=== PATIENT | male | born 1975 | race Caucasian/White ===

== ENCOUNTER 2017-05-14 16:19 | Emergency (ER) | payer OTHER ==
[~2017-05-14] VITALS: Ht 188 cm; Wt 81.6 kg
[2017-05-14 16:43] VITALS: BP 150/101
--- NOTE | 2017-05-14 17:10 | PHYS DOC ---
Past Medical History Past Medical History: No Pertinent History Past Surgical History: No Surgical History Alcohol Use: Occasionally Drug Use: None Adult General Chief Complaint Chief Complaint: SEXUALLY TRANSMITTED DISEASE HPI HPI Patient is a 42 year old male with no significant male medical history who presents today requesting to be tested for STDs he has dysuria and penile discharge for 4 days. Patient will not give much information but states if his results are positive he is going to get a divorce. Review of Systems Review of Systems Constitutional: Denies fever or chills [] Eyes: Denies change in visual acuity, redness, or eye pain [] GI: Denies abdominal pain, nausea, vomiting, bloody stools or diarrhea [] : Concern for STDs Musculoskeletal: Denies back pain or joint pain [] Integument: Denies rash or skin lesions [] Neurologic: Denies headache, focal weakness or sensory changes [] Endocrine: Denies polyuria or polydipsia [] Current Medications Current Medications Current Medications Medications (Trade) Dose Ordered Sig/Elva Start Time Stop Time Status Last Admin Dose Admin Azithromycin (Zithromax) 1,000 mg 1X ONCE 05/14/17 17:15 05/14/17 17:16 UNV Ceftriaxone Sodium (Rocephin Im) 250 mg 1X ONCE 05/14/17 17:15 05/14/17 17:16 UNV Metronidazole (Flagyl) 2,000 mg 1X ONCE 05/14/17 17:15 05/14/17 17:16 UNV Physical Exam Physical Exam Constitutional: Well developed, well nourished, no acute distress, non-toxic appearance. [] HENT: Normocephalic, atraumatic, bilateral external ears normal, oropharynx moist, no oral exudates, nose normal. [] Abdomen: Bowel sounds normal, soft, no tenderness, no masses, no pulsatile masses. [] Skin: Warm, dry, no erythema, no rash. [] Back: No tenderness, no CVA tenderness. [] Extremities: No tenderness, no cyanosis, no clubbing, ROM intact, no edema. [] Neurologic: Alert and oriented X 3, normal motor function, normal sensory function, no focal deficits noted. [] Psychologic: Affect normal, judgement normal, mood normal. [] Current Patient Data Vital Signs Vital Signs Date Time Temp Pulse Resp B/P (MAP) Pulse Ox O2 Delivery O2 Flow Rate FiO2 7/4/17 16:43 98.4 99 16 97 Room Air 98.4 EKG EKG [] Radiology/Procedures Radiology/Procedures [] Course & Med Decision Making Course & Med Decision Making Pertinent Labs and Imaging studies reviewed. (See chart for details) Patient is in the ED requesting to be tested for STDs, he would not give much information but states he has dysuria and penile discharged for four days. I offered patient treatment as well which he accepted. He states he will get a divorce his test is positive. Urine was sent to lab. Patient was given Flagyl, Rocephin and azithromycin and informed we will call him on the results are positive in the next 3-7 days. Dragon Disclaimer Dragon Disclaimer This electronic medical record was generated, in whole or in part, using a voice recognition dictation system. Departure Departure Impression: Primary Impression: Concern about STD in male without diagnosis Disposition: 01 HOME, SELF-CARE Condition: STABLE Referrals: NO PCP (PCP) Follow-up with the health department for further STD concerns Patient Instructions: Sexually Transmitted Disease, [id number] Additional Instructions: You were seen in the ED with STD concerns. You were treated prophylaxis (prior to results). It takes 3 days for the results to come back. Usually we call people who are positive in the next 3-7 days. If your results are negative we do not call you. Please do not have sex for 7 days. We recommend you use protection at all times, we recommend calling all your partners and let them know you were treated for STDs and ask them to seek treatment too. JACKIE RODRIGUEZ APRN May 14, 2017 17:10
[2017-05-14] MEDS ORDERED: AZITHROMYCIN 250 MG TABLET. PO ONE (17:15)
[2017-05-14] MEDS ORDERED: metroNIDAZOLE 500 MG TABLET PO ONE (17:15)
[2017-05-14] MEDS ORDERED: cefTRIAXone IM 250 MG VIAL IM ONE (17:15)
[2017-05-14 17:27] LABS: BILIRUBIN,URINE NEGATIVE (NEG); GLUCOSE,URINE NEGATIVE (NEG); NITRITE,URINE NEGATIVE (NEG); PH,URINE 6.5; PROTEIN,URINE 30 mg/dL (NEG-TRACE)
[2017-05-14 17:36] LABS: BACTERIA,URINE 0 /HPF (0-FEW); WBC,URINE >40 /HPF (0-4)
== END 2017-05-14 17:27 | disposition home or self-care (01) ==
LOC: ER 16:19
DX: Z20.2 Contact with and (suspected) exposure to infections with a predominantly sexual mode of transmission (principal); R30.0 Dysuria; R36.9 Urethral discharge, unspecified
CPT/HCPCS: 36415; 81001; 87491; 87591; 96372; 99284; J0696; Q0144

== ENCOUNTER 2017-08-28 10:31 | Emergency (ER) | payer SELFPAY ==
[~2017-08-28] VITALS: Ht 188 cm; Wt 84.8 kg
[2017-08-28 10:35] VITALS: BP 152/96
[2017-08-28] MEDS ORDERED: MECL25TA3 PO (10:42)
--- NOTE | 2017-08-28 10:48 | PHYS DOC ---
Past Medical History Past Medical History: No Pertinent History Past Surgical History: No Surgical History Alcohol Use: Occasionally Drug Use: None Adult General Chief Complaint Chief Complaint: DIZZY/LIGHT HEADED HPI HPI Patient is a 42 year old male who presents with episode of dizziness. He states he got up overnight to go to the restroom when he felt a little nauseous and moved his head and had an episode of vertigo. He went back to bed and woke up this morning feeling much better and no repeat events of the happened. He denies any blurry vision, headaches, focal weakness or ataxia. He's feeling much better today. In recent days he did have a little left ear pressure as well as sinus drainage that is since resolved. Denies any fevers. Patient admits to smoking but has been trying to cut back, no history of hypertension, doesn't follow with a primary care physician. Denies chest pain. Review of Systems Review of Systems Constitutional: Denies fever or chills [] Eyes: Denies change in visual acuity, redness, or eye pain [] HENT: Reports improving nasal congestion Respiratory: Denies cough or shortness of breath [] Cardiovascular: Denies chest pain GI: Denies abdominal pain, nausea, vomiting, bloody stools or diarrhea [] : Denies dysuria or hematuria [] Musculoskeletal: Denies back pain or joint pain [] Integument: Denies rash or skin lesions [] Neurologic: Denies headache, focal weakness or sensory changes [] Endocrine: Denies polyuria or polydipsia [] Allergies Allergies Allergies Coded Allergies Type Severity Reaction Last Updated Verified No Known Drug Allergies 05/14/17 No Physical Exam Physical Exam Constitutional: Well developed, well nourished HENT: Normocephalic, atraumatic, bilateral external ears normal, oropharynx moist Eyes: PERRLA, EOMI, conjunctiva normal, no discharge. Neck: Normal range of motion, supple, no stridor. Cardiovascular:Heart rate regular with regular rhythm Lungs & Thorax: Bilateral breath sounds clear to auscultation, no wheeze, crackles or rhonchi appreciated Abdomen: Nontender, nondistended Skin: Warm, dry Back: No tenderness Extremities: No tenderness, no cyanosis, no edema. [] Neurologic: Alert and oriented X 3, normal motor function, normal sensory function, no focal deficits noted. Cranial nerves II through XII intact, normal finger to nose bilaterally, normal gait EKG EKG [] Radiology/Procedures Radiology/Procedures [] Course & Med Decision Making Course & Med Decision Making Pertinent Labs and Imaging studies reviewed. (See chart for details) Patient symptoms yesterday but no symptoms today, feeling much better, he just walked approximately 2 miles to our facility without any symptoms. He admits he came here for work note as required by his job. Patient counseled on smoking cessation and the need to follow-up for his elevated blood pressure. Referral sheet given Ursula Disclaimer Ursula Disclaimer This electronic medical record was generated, in whole or in part, using a voice recognition dictation system. Departure Departure Impression: Primary Impression: Dizziness Disposition: 01 HOME, SELF-CARE Condition: GOOD Patient Instructions: Smoking Cessation, Tips For Success, Vertigo, Easy-to- Read, Hypertension, [id number], Form - Excuse from Work, School, or Physical Activity Scripts Meclizine Hcl (MECLIZINE HCL) 25 Mg Tablet 25 MG PO PRN TID Y for dizziness, #10 TAB dizziness Prov: BRITTANY NEIL MD 08/28/17 BRITTANY NEIL MD Aug 28, 2017 10:48
== END 2017-08-28 10:55 | disposition home or self-care (01) ==
LOC: ER 10:31
DX: R42 Dizziness and giddiness (principal); R11.0 Nausea
CPT/HCPCS: 99282

== ENCOUNTER 2017-11-10 13:54 | Emergency (ER) | payer SELFPAY, OTHER | END 2017-11-10 14:20 | disposition home or self-care (01) | LOC: ER 13:54 | DX: S05.12XA Contusion of eyeball and orbital tissues, left eye, initial encounter (principal); S05.11XA Contusion of eyeball and orbital tissues, right eye, initial encounter; Y04.0XXA Assault by unarmed brawl or fight, initial encounter; Y93.89 Activity, other specified; Y99.8 Other external cause status; Y92.89 Other specified places as the place of occurrence of the external cause | CPT/HCPCS: 99283 ==

== ENCOUNTER 2018-07-16 08:58 | Emergency (ER) | payer SELFPAY ==
[2017-11-10 14:00] VITALS: BP 161/98
[~2018-07-16 08:58] MED LIST: MECL25TA3 PO
== END 2018-07-16 10:05 | disposition left against medical advice (07) ==
LOC: ER 08:58
DX: M72.2 Plantar fascial fibromatosis (principal); Z53.21 Procedure and treatment not carried out due to patient leaving prior to being seen by health care provider

== ENCOUNTER 2020-10-14 13:10 | Emergency (ER) | payer SELFPAY ==
[2017-11-10 14:00] VITALS: BP 161/98
[~2020-10-14 13:10] MED LIST changes: +MECL-75 PO; -MECL25TA3 PO
== END 2020-10-14 14:26 | disposition left against medical advice (07) ==
LOC: ER 13:10
DX: R22.42 Localized swelling, mass and lump, left lower limb (principal); Z53.21 Procedure and treatment not carried out due to patient leaving prior to being seen by health care provider

== ENCOUNTER 2021-07-02 09:49 | Emergency (ER) | payer SELFPAY ==
[~2021-07-02] VITALS: Ht 188 cm; Wt 89.5 kg
[2021-07-02 10:09] VITALS: BP 162/110
[2021-07-02 10:23] LABS: BACTERIA,URINE 0 /HPF (0-FEW); BILIRUBIN,URINE NEGATIVE (NEG); CLARITY,URINE CLEAR; COLOR,URINE STRAW; NITRITE,URINE NEGATIVE (NEG); PROTEIN,URINE NEGATIVE (NEG-TRACE); RBC,URINE 0 /HPF (0-2); UROBILINOGEN,URINE 0.2 mg/dL (0.2 mg/dL); WBC,URINE 0 /HPF (0-4)
[2021-07-02] MEDS ORDERED: DOXY100C3 PO (11:02)
--- NOTE | 2021-07-02 11:02 | PHYS DOC ---
Past Medical History Past Medical History: No Pertinent History Past Surgical History: No Surgical History Smoking Status: Former Smoker Alcohol Use: None Drug Use: None General Adult EDM: Chief Complaint: SEXUALLY TRANSMITTED DISEASE HPI: HPI: 46-year-old male past medical history of former tobacco dependence, presents to the ED stating "my was just here and tested positive for chlamydia." Patient denies any associated genital rash, dysuria, hematuria, increased urinary frequency or urgency or urethral discharge. Has been treated for gonorrhea at the beginning of his marriage. Gives plasma approximately every 3 months, no history of HIV. Review of Systems: Review of Systems: Constitutional: Denies fever or chills. [] Eyes: Denies change in visual acuity. [] HENT: Denies nasal congestion or sore throat. [] Respiratory: Denies cough or shortness of breath. [] Cardiovascular: Denies chest pain or edema. [] GI: Denies abdominal pain, nausea, vomiting, : Denies dysuria or urethral discharge Musculoskeletal: Denies back pain or joint pain. [] Integument: Denies rash or diaphoresis Endocrine: Denies polyuria or polydipsia. [] Lymphatic: Denies swollen glands. [] Psychiatric: Denies depression or anxiety. [] Heart Score: C/O Chest Pain: No Risk Factors: Risk Factors: DM, Current or recent (<one month) smoker, HTN, HLP, family history of CAD, obesity. Risk Scores: Score 0 - 3: 2.5% MACE over next 6 weeks - Discharge Home Score 4 - 6: 20.3% MACE over next 6 weeks - Admit for Clinical Observation Score 7 - 10: 72.7% MACE over next 6 weeks - Early Invasive Strategies Allergies: Allergies: Allergies Coded Allergies Type Severity Reaction Last Updated Verified No Known Drug Allergies 05/14/17 No Physical Exam: PE: Constitutional: Well developed, well nourished, no acute distress, non-toxic appearance. HENT: Normocephalic, atraumatic, Eyes: EOMI, conjunctiva normal, no discharge. Neck: Normal range of motion, supple, Cardiovascular: S1/2 present, regular rhythm Lungs & Thorax: Speaking in full sentences, bilateral equal chest rise, no tachypnea or increased work of breathing Skin: Warm, dry, no erythema, no rash. [] Back: No tenderness, no CVA tenderness. [] Extremities: No tenderness, no cyanosis, Neurologic: Alert and oriented X 3, no focal deficits noted. [] Psychologic: Affect normal, judgement normal, mood normal. [] Current Patient Data: Labs: Laboratory Tests Test 07/02/21 10:03 Urine Collection Type Unknown Urine Color Straw Urine Clarity Clear Urine pH 7.0 (<5.0-8.0) Urine Specific [place] 1.025 (1.000-1.030) Urine Protein Negative mg/dL (NEG-TRACE) Urine Glucose (UA) Negative mg/dL (NEG) Urine Ketones (Stick) Negative mg/dL (NEG) Urine Blood Negative (NEG) Urine Nitrite Negative (NEG) Urine Bilirubin Negative (NEG) Urine Urobilinogen Dipstick 0.2 mg/dL (0.2 mg/dL) Urine Leukocyte Esterase Negative (NEG) Urine RBC 0 /HPF (0-2) Urine WBC 0 /HPF (0-4) Urine Squamous Epithelial Cells Few /LPF Urine Bacteria 0 /HPF (0-FEW) Vital Signs: Vital Signs Date Time Temp Pulse Resp B/P (MAP) Pulse Ox O2 Delivery O2 Flow Rate FiO2 07/02/21 10:09 98.5 92 18 162/110 (119) 99 Room Air 98.5 EKG: EKG: [] Radiology/Procedures: Radiology/Procedures: [] Course & Med Decision Making: Course & Med Decision Making Pertinent Labs and Imaging studies reviewed. (See chart for details) Concern for Covid exposure, asymptomatic patient. IM Rocephin given in ED tod ay. Will discharge home with strict ED return precautions were given for fever, flulike symptoms, nausea, vomiting or rash. Encouraged urgent outpatient follow-up with PMD for testing of blood-borne pathogen's. Life-threatening processes were considered but are low suspicion at this time, given history, physical exam and ED workup. Pt was educated on all prescription medications and adverse effects. All patient's questions were answered and pt was stable at time of discharge. Life/limb-threatening differential includes but is not limited to, blunt vs penetrating trauma, infection/uti/pyelonephritis/fourneirs, bladder or urethral injury, penile fracture/amputation/contusion, testicular rupture or dislocation, traumatic epididymitis, or pelvic injury or fracture. I have spoken with the patient and/or caregivers. I explained the patient's condition, diagnoses and treatment plan based on the information available to me at this time. I have answered the patient and/or caregiver's questions and addressed any concerns. The patient and/or caregivers have a good understanding of patient's diagnosis, condition and treatment plan as can be expected at this point. Vital signs have been stable. Patient's condition is stable and appropriate for discharge from the emergency department. Patient will pursue further outpatient evaluation with primary care physician or other designated or consulting physician as outlined in the discharge instructions. The patient and/or caregivers are agreeable to this plan of care and follow-up instructions have been explained in detail. The patient and/or caregivers have received these instructions in written form and have expressed an understanding of the discharge instructions. The patient and/or caregivers are aware that any significant change of condition or worsening of symptoms should prompt immediate return to this or the closest emergency department or call to 911. Ursula Disclaimer: Ursula Disclaimer: This electronic medical record was generated, in whole or in part, using a voice recognition dictation system. Departure Departure Impression: Primary Impression: Chlamydia contact, treated Disposition: HOME / SELF CARE / HOMELESS Condition: STABLE Referrals: NO PCP (PCP) Follow-up with your primary care physician in 24 to 48 hours OR FOLLOW UP WITH FAMILY MEDICINE: [address], [address] [place] [address] Patient Instructions: Chlamydia Test, Sexually Transmitted Disease Additional Instructions: EMERGENCY DEPARTMENT GENERAL DISCHARGE INSTRUCTIONS Thank you for coming to [facility] Emergency Department (ED) today and trusting us with you care. We trust that you had a positive experience in our Emergency Department. If you wish to speak to the department management, you may call the Director at [phone]. YOUR FOLLOW UP INSTRUCTIONS ARE FOLLOWS: 1. Do you have a private Doctor? If you do not have a private doctor, please ask for a resource list of physicians or clinics that may be able to assist you with follow up care. 3. A lab test or culture has been done, your results will be reviewed and you will be notified if you need a change in treatment. ADDITIONAL INSTRUCTIONS AND INFORMATION: 1. Your care today has been supervised by a physician who is specially trained in emergency care. Many problems require more than one evaluation for a complete diagnosis and treatment. We recommend that you schedule your follow up appointment as recommended to ensure complete treatment of you illness or injury. If you are unable to obtain follow up care and continue to have a problem, or if your condition worsens, we recommend that you return to the ED. 2. We are not able to safely determine your condition over the phone nor are we able to give sound medical advice over the phone. For these safety reasons, if you call for medical advice we will ask you to come to the ED for further evaluation. 3. If you have any questions regarding these discharge instructions please call the ED at [phone]. SAFETY INFORMATION: In the interest of safety, wellness, and injury prevention; we encourage you to wear your sealbelt, if you smoke; quite smoking, and we encourage family to use a protective helmet for bicycling and other sporting events that present an increased risk for head injury. IF YOUR SYMPTOMS WORSEN OR NEW SYMPTOMS DEVELOP, OR YOU HAVE CONCERNS ABOUT YOUR CONDITION; OR IF YOUR CONDITION WORSENS WHILE YOU ARE WAITING FOR YOUR FOLLOW UP APPOINTMENT; EITHER CONTACT YOUR PRIMARY CARE DOCTOR, THE PHYSICIAN WHOSE NAME AND NUMBER YOU WERE GIVEN, OR RETURN TO THE ED IMMEDIATELY. Scripts Doxycycline Hyclate (DOXYCYCLINE HYCLATE) 100 Mg Capsule 1 CAP PO BID for 7 Days, #14 CAP Prov: ZHOU YEN DO 07/02/21 ZHOU YEN DO Jul 02, 2021 11:02
== END 2021-07-02 11:07 | disposition home or self-care (01) ==
LOC: ER 09:49
DX: A74.9 Chlamydial infection, unspecified (principal); Z87.891 Personal history of nicotine dependence
CPT/HCPCS: 81001; 87491; 87591; 99283